=== PATIENT | female | born 1975 | race African-American/Black ===

== ENCOUNTER 2021-11-27 08:22 | Emergency (ER) | payer BC, SELFPAY ==
[2021-11-27 08:38] VITALS: BP 139/89; PULSE 66; RESP 20; TEMP 36.6; O2SAT 100
--- NOTE | 2021-11-27 09:09 | ED.URI ---
HPI - URI/Sore Throat General Chief Complaint: Upper Respiratory Infection Stated Complaint: THROAT TIGHT/R SIDED HEADACHE Time Seen by Provider: 11/27/21 08:45 Source: patient and RN notes reviewed Mode of arrival: ambulatory Limitations: no limitations History of Present Illness HPI Narrative: 46-year-old female presents to the [facility] with complaints of right-sided facial pressure and head pressure that started at 0 300. Patient has taken ibuprofen with some relief. Also reports she had some pressure or pain in her throat which has subsided. Patient states that she has twice weekly at work for COVID. Tested negative yesterday, tested negative today. Denies chest pain or abdominal pain. Denies shortness of breath. Denies cough. Denies fevers. MD elicited complaint: sore throat Related Data Home Medications Medication Instructions Recorded Confirmed No Home Medications 11/27/21 11/27/21 Allergies Allergy/AdvReac Type Severity Reaction Status Date / Time No Known Allergies Allergy Mild Verified 08/12/09 19:27 Review of Systems Review of Systems: All systems reviewed & are unremarkable except as noted in HPI and below Constitutional: Constitutional: Reports no additional constitutional complaints, Denies chills and Denies fever(s) Eyes: Eyes: Reports no additional eye complaints ENT: Reports as per HPI Cardiovascular: Cardiovascular: Reports no additional cardiovascular complaints Respiratory: Respiratory: Reports no additional respiratory complaints Gastrointestinal: Gastrointestinal: Reports no additional gastrointestinal complaints Musculoskeletal: Musculoskeletal: Reports no additional musculoskeletal complaints Integumentary/Breasts: Skin/Breast: Reports system reviewed and no additional complaints, except as docu Neurologic: Reports system reviewed and no additional complaints, except as documented Psychiatric: Psychiatric: Reports no additional psychiatric complaints Allergic/Immunologic: Allergic/Immunologic: Reports no additional allergic/immunologic complaints [facility] Past Medical History Medical History (Updated 11/27/21 @ 09:22 by Liz Gonsalez APRN) No significant medical problems Surgical History Surgical History (Updated 11/27/21 @ 09:11 by Liz Gonsalez APRN) No history of previous surgery Social History Social History (Updated 11/27/21 @ 09:12 by Liz Gonsalez APRN) Smoking status: Current every day smoker Gender identity (if verbalized by the patient): Female Comments At the time of my signature, I reviewed and agree with the nursing past medical, surgical, social, and family history. There is no relevant family history pertinent to the patient complaint. Exam Const: General: healthy appearing, no acute distress and alert Nutritional Appearance: well nourished and obese morbidly obese Orientation/consciousness: patient oriented x3 Limitations: no limitations HENMT: Head: normal to inspection Ears: external ears normal, EAC's normal and TM abnormal with fluid behind the TM on the left; not erythematous and not perforated General nose exam: Normal external nose present, Abnormal mucous membranes and turbinates present boggy on the right; not erythematous and no nasal discharge noted Face and sinus: normal facial exam Throat: posterior oropharynx normal and uvula midline Eyes: General: appearance normal, both eyes and all related structures Conjunctivae: conjunctivae normal Pupils: Equal, round and reactive pupils present Neck: Neck: normal visual inspection, no lymphadenopathy and no meningeal signs Chest: Chest palpation & inspection: normal inspection of the chest Resp: Effort & Inspection: normal respiratory effort and no use of accessory muscles Auscultation: clear to auscultation bilaterally, no crackles, no rales, no rhonchi and no wheezes Cardio: Rate: regular rate Rhythm: regular rhythm Back/Spine/Pelvis: Cervical Spine: normal cervi
== END 2021-11-27 09:18 | disposition home or self-care (01) ==
PROVIDERS: Emergency Provider Nurse Practitioner
DX: H65.01 Acute serous otitis media, right ear (principal); R09.82 Postnasal drip; F17.200 Nicotine dependence, unspecified, uncomplicated
CPT/HCPCS: 99211; G0463